=== PATIENT | female | born 1950 | race Caucasian/White ===

== ENCOUNTER 2017-06-04 12:18 | Day surgery (SDC) | payer MEDICARE ==
[2017-06-03 16:49] VITALS: BMI 50.5
[~2017-06-04 12:18] MED LIST: PHENYLEPHRINE-NS 100 MCG/ML 10 ML SYRINGE ONE; PROPOFOL 200 MG/20 ML VIAL ONE; ePHEDrine/0.9% NaCl/PF SYRINGE 50 mg/10 ml ONE
--- NOTE | 2017-06-04 14:02 | OP ---
DATE OF PROCEDURE: 06/04/2017 PROCEDURE: Colonoscopy with snare polypectomy. SURGEON: Jayson Freeman M.D. ANESTHESIA: Medication given per Anesthesiology Department. PREPROCEDURE DIAGNOSIS: Positive Cologuard stool fit - DNA test. POSTOPERATIVE DIAGNOSES: 1. Sigmoid colon polyp, status post cold snare polypectomy. 2. Otherwise normal colon exam. PROCEDURE IN DETAIL: Written consent was obtained prior to procedure. After adequate sedation, a re ctal exam was performed and was normal. Endoscope was advanced to the cecum. The quality of bowel p rep was adequate. The cecum, ascending colon, hepatic flexure, transverse colon, splenic flexure, de scending colon appeared normal. In the sigmoid colon, a 5 mm sessile polyp was noted and was removed with a cold snare with complete resection. The polyp was retrieved. The rectal vault appeared norm al including retroflexion. The patient tolerated procedure well. ASSESSMENT: 1. Sigmoid colon polyp, status post snare polypectomy. 2. Otherwise normal colon exam. PLAN: Await biopsy result.
== END 2017-06-04 14:38 | disposition home or self-care (01) ==
LOC: SDC 12:18
PROVIDERS: ATTEND Internal Medicine Gastroenterology
PROC: 0DBN8ZX Excision of Sigmoid Colon, Via Natural or Artificial Opening Endoscopic, Diagnostic (ICD-10-PCS; principal; 2017-06-04)
DX: R19.5 Other fecal abnormalities (principal); D12.5 Benign neoplasm of sigmoid colon; I10 Essential (primary) hypertension; N32.81 Overactive bladder; M17.10 Unilateral primary osteoarthritis, unspecified knee; J42 Unspecified chronic bronchitis; Z79.899 Other long term (current) drug therapy; Z91.048 Other nonmedicinal substance allergy status
CPT/HCPCS: 88305; J2704

== ENCOUNTER 2017-07-29 09:31 | Outpatient (CLI) | payer MEDICARE | END 2017-07-29 09:32 | disposition home or self-care (01) | LOC: BICMAMMO 09:31 | PROVIDERS: ATTEND Internal Medicine Hematology & Oncology | DX: Z08 Encounter for follow-up examination after completed treatment for malignant neoplasm (principal); Z85.3 Personal history of malignant neoplasm of breast | CPT/HCPCS: 77066; G0279 ==

== ENCOUNTER 2018-08-06 09:26 | Outpatient (CLI) | payer MEDICARE ==
--- NOTE | 2018-08-06 10:27 | MMO ---
Bilateral MAMMO Bilat Screen [facility]. CLINICAL HISTORY: Patient is 68 years old and is seen for screening. The patient has the following family history of breast cancer: sister. The patient has a history of malignant (generic) in the right breast at age 54. The patient has a history of right Lumpectomy at age 54 - malignant. VIEWS: The views performed were: bilateral craniocaudal with tomosynthesis and bilateral mediolateral oblique with tomosynthesis. FILMS COMPARED: The present examination has been compared to prior imaging studies performed at [facility] on 07/29/2017, and at [facility] on 05/09/2014, 05/07/2015 and 07/28/2016. MAMMOGRAM FINDINGS: There are scattered fibroglandular densities. There are no suspicious masses, suspicious calcifications, or new areas of architectural distortion. IMPRESSION: THERE IS NO MAMMOGRAPHIC EVIDENCE OF MALIGNANCY. A ROUTINE FOLLOW-UP MAMMOGRAM IN 1 YEAR IS RECOMMENDED. THE RESULTS OF THIS EXAM WERE SENT TO THE PATIENT. ACR BI-RADS Category 1 - Negative MAMMOGRAPHY NOTE: 1. A negative mammogram report should not delay a biopsy if a dominant of clinically suspicious mass is present. 2. Approximately 10% to 15% of breast cancers are not detected by mammography. 3. Adenosis and dense breasts may obscure an underlying neoplasm.
== END 2018-08-06 09:27 | disposition home or self-care (01) ==
LOC: BICMAMMO 09:26
PROVIDERS: ATTEND Internal Medicine Hematology & Oncology
DX: Z12.31 Encounter for screening mammogram for malignant neoplasm of breast (principal)
CPT/HCPCS: 77063; 77067

== ENCOUNTER 2018-10-28 12:46 | Outpatient (CLI) | payer MEDICARE ==
--- NOTE | 2018-10-28 13:42 | ULT ---
US Venous Doppler Lt Unilat History: Left calf swelling. Pain. Comparison: None. Findings: Real-time grayscale, color, and spectral analysis of the left lower extremity venous system was performed. The common femoral, femoral, proximal portions greater saphenous and deep femoral veins as well as the popliteal posterior tibial veins were interrogated. Normal flow, augmentation, and compression. Incidental note of popliteal cyst.. Impression: No deep venous thrombosis.
== END 2018-10-28 12:47 | disposition home or self-care (01) ==
LOC: RAD 12:46 → ULT 12:47
PROVIDERS: ATTEND Family Medicine
DX: M79.605 Pain in left leg (principal); R60.0 Localized edema

== ENCOUNTER 2018-11-09 11:31 | Inpatient (IN) | payer MEDICARE ==
[2018-11-09 14:18] LABS: Anion Gap 15 mmol/L (10-20); BUN (Urea Nitrogen) 20 mg/dL (9.8-20.1); Calc. Creatinine Clearance 0 mL/min (70-130); Carbon Dioxide 24 mmol/L (23-31); Chloride 104 mmol/L (98-107); Estimated GFR-MDRD 75; Glucose 112 mg/dL (80-115); Potassium 4.7 mmol/L (3.5-5.1); Sodium 138 mmol/L (136-145)
[2018-11-09 14:20] LABS: Hemoglobin 16.7 g/dL (12.0-16.0); Mean Corpuscular HGB CONC 33.9 g/dL (32.0-36.0); Mean Corpuscular Hemoglobin 32.1 pg (27.0-31.0); Mean Corpuscular Volume 94.7 fL (78.0-98.0); Mean Platelet Volume 9.8 fL (7.4-10.4); Platelet Count 156 thou/uL (130-400); RBC Distribution Width 12.9 % (11.5-14.5); Red Blood Cell (RBC) Count 5.21 mill/uL (4.20-5.40); White Blood Cell (WBC) Count 7.3 thou/uL (4.8-10.8)
[2018-11-09 14:22] LABS: Lymphocytes 27 % (21-51); MDiff Complete? YES; Monocytes 9 % (0-10); Neutrophil 54 % (42-75); Platelet Morphology Comment Appears Adequate; RBC Morphology Normal; Reactive Lymphocytes 9 % (0-10)
[2018-11-09] MEDS: Piperacillin/Tazobactam 3.375 GM in Sodium Chloride 0.9% 100 ML IVPB SCH ×2 (14:56→20:45)
[2018-11-09 15:45] VITALS: BMI 52.4
[2018-11-09] MEDS: Vancomycin HCl 1 GM in Premix Bag 1 BAG IVPB SCH (16:28)
--- NOTE | 2018-11-09 17:31 | HP ---
CHIEF COMPLAINT: Left lower extremity swelling, pain, and erythema. HISTORY OF PRESENT ILLNESS: The patient is a 68-year-old female, who failed outpatient treatment of her left lower extremity cellulitis with two rounds of antibiotics, the first one was with Augmentin, the second one was with clindamycin. She underwent a Doppler of the lower extremities recently, which did not show any DVTs. She did not have any fever or chills. Just pain, swelling, and redness. There was no any trauma recently to this left ankle area. Surrogate decision maker is Ms. Jean Watson. Primary care physician, Allie Barry MD PAST MEDICAL HISTORY: 1. Hypertension. 2. Overactive bladder. 3. Arthritis of knee. 4. History of breast cancer. 5. Chronic bronchitis. 6. Hepatitis. PAST SURGICAL HISTORY: 1. x2. 2. Cholecystectomy. 3. Lumpectomy. MEDICATIONS: Please refer to the medications list. SOCIAL HISTORY: She denies any alcohol intake, cigarette smoking, or use any illicit drugs. FAMILY HISTORY: Mother has diabetes, she is still alive. Father is not well known to her. ALLERGIES: NONE. REVIEW OF SYSTEMS: All 14 systems were reviewed and symptoms were negative except for those which are mentioned in HPI. PHYSICAL EXAMINATION: VITAL SIGNS: Pending at this time. HEENT: Her head is atraumatic and normocephalic. Eyes, PERRLA, sclerae are nonicteric. Oral mucosa is moist. NECK: Supple. LUNGS: Clear. HEART: S1 and S2 normal. ABDOMEN: Soft, obese, nontender. EXTREMITIES: Left ankle and above the ankle area is red, swollen, process involves her left foot. Pulses diminished on both tibialis posterior and dorsalis pedis arteries similar bilaterally. NEUROLOGICAL: She is alert and oriented x4. There are no any motor or sensory deficits present. Cranial nerves are intact. LABORATORY DATA: None. IMPRESSION: 1. Left lower extremity cellulitis, status post failed outpatient oral antibiotic therapy x2 weeks. 2. Hypertension. 3. Overactive bladder. 4. History of breast cancer. 5. Chronic bronchitis. 6. Hepatitis. PLAN: Admission for inpatient status. Condition is fair. Activity, bedrest and bathroom privileges. IV Hep-Lock, vancomycin, and Zosyn. IV piggyback. Pain management with Tylenol, and blood cultures x2 before antibiotics are started. We will do DVT prophylaxis with Lovenox. No SCDs since she has some swelling and erythema, and we will reconcile her home medications. Job ID: [id number]
[2018-11-10] MEDS ORDERED: Melatonin 3 MG TAB PO SCH (02:00)
[2018-11-10] MEDS: Piperacillin/Tazobactam 3.375 GM in Sodium Chloride 0.9% 100 ML IVPB SCH ×4 (02:30→20:30)
[2018-11-10] MEDS: Vancomycin HCl 1 GM in Premix Bag 1 BAG IVPB SCH ×2 (04:36→17:05)
[2018-11-10 06:21] LABS: Hemoglobin 14.8 g/dL (12.0-16.0); Lymphocytes 33 % (21-51); MDiff Complete? YES; Mean Corpuscular HGB CONC 32.5 g/dL (32.0-36.0); Mean Corpuscular Hemoglobin 30.7 pg (27.0-31.0); Mean Corpuscular Volume 94.4 fL (78.0-98.0); Monocytes 7 % (0-10); Neutrophil 60 % (42-75); Platelet Count 137 thou/uL (130-400); Platelet Morphology Comment Appears Adequate; RBC Distribution Width 12.9 % (11.5-14.5); RBC Morphology Normal; Red Blood Cell (RBC) Count 4.83 mill/uL (4.20-5.40); White Blood Cell (WBC) Count 6.4 thou/uL (4.8-10.8)
[2018-11-10 06:30] LABS: Anion Gap 12 mmol/L (10-20); BUN (Urea Nitrogen) 16 mg/dL (9.8-20.1); Calc. Creatinine Clearance 173 mL/min (70-130); Calcium 9.1 mg/dL (7.8-10.44); Carbon Dioxide 24 mmol/L (23-31); Chloride 108 mmol/L (98-107); Estimated GFR-MDRD 90; Glucose 104 mg/dL (80-115); Potassium 3.9 mmol/L (3.5-5.1); Sodium 140 mmol/L (136-145)
[2018-11-10] MEDS: Enoxaparin Sodium 40 MG/0.4 ML SYRINGE SC SCH (08:20)
--- NOTE | 2018-11-10 11:46 | PDOC.HOSPP ---
- Subjective Encounter Date: 11/10/18 Encounter Time: 11:44 Subjective: 68 y/o obese female with HTN, breast cancer s/p treatment admitted with worsening left leg pain and swelling that persisted after 2 rounds of antibiotics for presumed cellulitis. No fever. - Objective Vital Signs & Weight: Vital Signs (12 hours) Temp Pulse Resp BP BP Pulse Ox 11/10/18 08:30 93 L 11/10/18 07:34 98.0 F 59 L 20 106/68 93 L 11/10/18 03:29 98.0 F 60 20 91/55 L 93 L 11/10/18 00:00 98.3 F 63 20 92/54 L 93 L Weight Weight 296 lb 3 oz I&O: 11/09/18 11/10/18 11/11/18 06:59 06:59 06:59 Intake Total 780 Balance 780 Result Diagrams: 11/10/18 05:52 11/10/18 05:52 Hospitalist ROS - Medication Medications: Active Medications Generic Name Dose Route Start Last Admin Trade Name Lynn PRN Reason Stop Dose Admin Enoxaparin Sodium 40 mg 11/10/18 09:00 11/10/18 08:20 Lovenox SC Not Given 0900 FRANCINE Piperacillin Sod/Tazobactam 100 mls @ 200 mls/hr 11/09/18 14:00 11/10/18 08: 20 Sod 3.375 gm/ Sodium Chloride IVPB 100 mls 0200,0800,1400,2000 FRANCINE Administration Vancomycin HCl 1 gm/ Device 200 mls @ 200 mls/hr 11/09/18 15:00 11/10/18 04: 36 IVPB 200 mls 0300,1500 FRANCINE Administration - Exam General Appearance: awake alert Eye: anicteric sclera ENT: normocephalic atraumatic, moist mucosa Neck: supple, symmetric Heart: RRR, murmur present Respiratory: no wheezes, no rales, no ronchi, normal chest expansion Respiratory - other findings: some transmitted sounds noted Gastrointestinal: soft, non-tender, non-distended, normal bowel sounds Gastrointestinal - other findings: obese Extremeties - other findings: mild edema of left leg noted Skin - other findings: thickening of skin on both anterior leg with erythroderma and indurations Neurological: CN's grossly intact, no focal deficits Psychiatric: normal affect, A&O x 3 Hosp A/P (1) Cellulitis of left anterior lower leg Code(s): L03.116 - CELLULITIS OF LEFT LOWER LIMB Status: Acute (2) Erythroderma Code(s): L53.9 - ERYTHEMATOUS CONDITION, UNSPECIFIED Status: Acute (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 Get CRP, ESR, PASCALE, CK and CXR. analgesic as needed
[2018-11-10 12:41] LABS: CRP (Inflammatory) 0.7 mg/dL (= or < 0.5)
--- NOTE | 2018-11-10 14:03 | RAD ---
PA AND LATERAL CHEST: Date: 11/10/18 HISTORY: Chronic bronchitis. FINDINGS: Heart size upper limits of normal. Mediastinal structures appear unremarkable. Lungs are clear of any infiltrates. No signs of failure. No interval change since the 08/04/16 study. IMPRESSION: No active intrathoracic disease. POS: TPC
[2018-11-10 18:48] LABS: ANA Symphony (Qualitative) Negative (Negative); ANA Symphony (Quantitative) 0.3 Ratio (< 0.7 Negative); dsDNA IgG Antibody Less than 0.5 IU/mL (<10 Negative)
[2018-11-11] MEDS: Acetaminophen 500 MG TAB PO PRN ×2 (01:52→22:44)
[2018-11-11] MEDS: Melatonin 3 MG TAB PO PRN ×2 (01:52→22:44)
[2018-11-11] MEDS: Vancomycin HCl 1 GM in Premix Bag 1 BAG IVPB SCH ×2 (02:01→18:43)
[2018-11-11] MEDS: Piperacillin/Tazobactam 3.375 GM in Sodium Chloride 0.9% 100 ML IVPB SCH ×4 (02:01→20:24)
[2018-11-11 02:15] LABS: Vancomycin, Trough 13.4 ug/mL
[2018-11-11] MEDS: Enoxaparin Sodium 40 MG/0.4 ML SYRINGE SC SCH (09:50)
--- NOTE | 2018-11-11 17:55 | PDOC.HOSPP ---
- Subjective Encounter Date: 11/11/18 Encounter Time: 17:53 Subjective: 68 y/o obese female with HTN, breast cancer s/p treatment admitted with worsening left leg pain and swelling that persisted after 2 rounds of antibiotics for presumed cellulitis. Reported improvement of swelling but tenderness to touch persisted. Remained afebrile. - Objective Vital Signs & Weight: Vital Signs (12 hours) Temp Pulse Resp BP BP Pulse Ox 11/11/18 16:00 98.2 F 68 18 140/63 94 L 11/11/18 11:35 98.0 F 51 L 16 111/69 95 11/11/18 08:40 91 L 11/11/18 07:27 98.1 F 53 L 18 125/75 91 L Weight Weight 296 lb 3 oz I&O: 11/10/18 11/11/18 11/12/18 06:59 06:59 06:59 Intake Total 780 1150 Balance 780 1150 Result Diagrams: 11/10/18 05:52 11/10/18 05:52 Hospitalist ROS - Medication Medications: Active Medications Generic Name Dose Route Start Last Admin Trade Name Freq PRN Reason Stop Dose Admin Acetaminophen 1,000 mg 11/11/18 01:35 11/11/18 01:52 Tylenol PO 1,000 mg Q6H PRN Administration Moderate to Severe Pain (6-10) Enoxaparin Sodium 40 mg 11/10/18 09:00 11/11/18 09:50 Lovenox SC Not Given 0900 [facility] Piperacillin Sod/Tazobactam 100 mls @ 200 mls/hr 11/09/18 14:00 11/11/18 09: 50 Sod 3.375 gm/ Sodium Chloride IVPB Not Given 0200,0800,1400,2000 FRANCINE Vancomycin HCl 1 gm/ Device 200 mls @ 200 mls/hr 11/09/18 15:00 11/11/18 02: 01 IVPB Not Given 0300,1500 FRANCINE Melatonin 3 mg 11/11/18 01:35 11/11/18 01:52 Melatonin PO 3 mg HS PRN Administration Insomnia - Exam General Appearance: awake alert General - other findings: obese Eye: anicteric sclera ENT: normocephalic atraumatic Neck: supple Heart: RRR Respiratory: no wheezes, no rales, no ronchi, normal chest expansion Gastrointestinal: soft, non-tender, non-distended, normal bowel sounds Gastrointestinal - other findings: obese morbidly Extremeties - other findings: Trace left leg edema. Regressing erythema on left leg. 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 Get scleroderma antibody analgesic as needed Continue other treatments
[2018-11-12] MEDS: Piperacillin/Tazobactam 3.375 GM in Sodium Chloride 0.9% 100 ML IVPB SCH ×2 (01:48→09:04)
[2018-11-12] MEDS: Vancomycin HCl 1 GM in Premix Bag 1 BAG IVPB SCH (02:49)
[2018-11-12 05:54] LABS: #Basophils 0.1 thou/uL (0.0-0.2); #Eosinphils 0.4 thou/uL (0.0-0.7); #Lymphocytes 3.3 thou/uL (1.20-3.40); #Monocytes 0.8 thou/uL (0.11-0.59); %Basophils 0.9 % (0.0-1.0); %Lymphocytes 44.3 % (21.0-51.0); %Monocytes 10.2 % (0.0-10.0); %Neutrophils 39.6 % (42.0-75.0); Hemoglobin 16.6 g/dL (12.0-16.0); Mean Corpuscular HGB CONC 33.6 g/dL (32.0-36.0); Mean Corpuscular Hemoglobin 31.6 pg (27.0-31.0); Mean Platelet Volume 10.3 fL (7.4-10.4); Platelet Count 149 thou/uL (130-400); RBC Distribution Width 12.8 % (11.5-14.5); Red Blood Cell (RBC) Count 5.25 mill/uL (4.20-5.40); White Blood Cell (WBC) Count 7.5 thou/uL (4.8-10.8)
[2018-11-12 06:12] LABS: Anion Gap 13 mmol/L (10-20); BUN (Urea Nitrogen) 11 mg/dL (9.8-20.1); Calc. Creatinine Clearance 171 mL/min (70-130); Calcium 9.8 mg/dL (7.8-10.44); Carbon Dioxide 22 mmol/L (23-31); Chloride 107 mmol/L (98-107); Estimated GFR-MDRD 89; Glucose 99 mg/dL (80-115); Sodium 138 mmol/L (136-145)
[2018-11-12] MEDS: Enoxaparin Sodium 40 MG/0.4 ML SYRINGE SC SCH (08:28)
--- NOTE | 2018-11-12 11:39 | PDOC.EVN ---
Event Note - Event Note Event Note: Discharged home. discharge summary dictated. [id number]
--- NOTE | 2018-11-12 12:13 | DIS ---
DATE OF ADMISSION: 11/09/2018 DATE OF DISCHARGE: 11/12/2018 PRIMARY CARE PHYSICIAN: Allie Barry MD DISCHARGE DIAGNOSES: 1. Left anterior lower leg cellulitis. 2. 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 3. Hypertension. 4. Morbid obesity. 5. Arthritis. HOSPITAL COURSE: A 68-year-old obese female with known history of hypertension and breast cancer, status post treatment, admitted with worsening left leg pain and swelling that persisted after 2 rounds of antibiotics for cellulitis. The patient reportedly had an initial course of Augmentin, followed by clindamycin with persistence of symptoms. Hence, she was sent over by PCP for further evaluation and treatment. The patient was started on broad-spectrum antibiotic therapy with vancomycin and Zosyn with improvement. She, however, continued to have some tenderness, but is regressing. She remained afebrile. IV antibiotics were subsequently and she was started on linezolid for soft tissue infection. Of note, however, the patient was found to have indurations and tenderness on both anterior legs concerning for cutaneous cutis, which could be seen in scleroderma and other autoimmune diseases. Hence, the patient was further evaluated with CRP, ESR, as well as antinuclear antibody, but these were largely unremarkable. Antiscleroderma-70 antibodies was sent out, but the result was pending at the time of discharge. The patient was advised to follow up with PCP with a view to send referral to drive in theater attendant for further evaluation and treatment. PHYSICAL EXAMINATION: VITAL SIGNS: Temperature 97.9, pulse 61, respiratory rate 16, SpO2 of 97% on room air, and blood pressure is 126/77. GENERAL: Obese female, in no obvious distress. Afebrile. Anicteric. Acyanotic. HEENT: Normocephalic, atraumatic. Oral mucosa is moist. CARDIOVASCULAR: Regular rhythm and rate with normal heart sounds 1 and 2. RESPIRATORY: Fair air entry bilaterally with no obvious crackle or rhonchi or use of accessory muscles. GI: Obese, soft, nontender, and nondistended with normal bowel sounds. EXTREMITIES: Regressing erythema, now limited to a circumscribed area of about 10 cm in diameter on the anterior aspect of left leg. No obvious edema was noticed on both legs. Indurations on the anterior legs were also noticed. CENTRIFUGAL OPERATOR: Conscious and alert and oriented x3 with appropriate mental status. Cranial nerves 2 through 12 are grossly intact. The patient is ambulant. DISCHARGE DISPOSITION: Home. DISCHARGE CONDITION: Improved. DISCHARGE MEDICATION: 1. Linezolid 600 mg p.o. b.i.d. 2. Calcium carbonate two tablets p.o. daily. 3. Cholecalciferol 1000 units p.o. daily. 4. Aromasin 25 mg p.o. daily. 5. Lactobacillus one capsule p.o. daily. 6. Multivitamin one capsule p.o. daily. 7. [place]-3 fatty acid two capsules p.o. daily. 8. Oxybutynin 5 mg p.o. daily. 9. Vitamin C 500 mg p.o. daily. FOLLOWUP: The patient is to follow with PCP in 7 days with a view to being referred to a drive in theater attendant for further evaluation for possible autoimmune disease or scleroderma. Discharge took less than 30 minutes. Job ID: [id number]
[2018-11-12 12:14] VITALS: BP 125/57; TEMP 98
[2018-11-12 16:28] LABS: Scleroderma-70 IgG Antibody Less than 0.6 EliAU/mL (<7 Negative)
== END 2018-11-12 12:32 | disposition home or self-care (01) | DRG 603 ==
LOC: T4-B 12:51
PROVIDERS: ADMIT Internal Medicine; ATTEND Internal Medicine
DX: L03.116 Cellulitis of left lower limb (principal); Z68.43 Body mass index [BMI] 50.0-59.9, adult; I10 Essential (primary) hypertension; M17.10 Unilateral primary osteoarthritis, unspecified knee; N32.81 Overactive bladder; J42 Unspecified chronic bronchitis; K75.9 Inflammatory liver disease, unspecified; L53.9 Erythematous condition, unspecified; L94.2 Calcinosis cutis; E66.01 Morbid (severe) obesity due to excess calories; Z85.3 Personal history of malignant neoplasm of breast; Z90.49 Acquired absence of other specified parts of digestive tract
CPT/HCPCS: 36415; 71046; 80048; 80053; 80202; 82550; 85007; 85025; 85027; 85652; 86038; 86140; 86225; 86235; 87040; J1650; J2543; J3370; J3490

== ENCOUNTER 2021-08-06 11:39 | Outpatient (CLI) | payer MEDICARE | END 2021-08-06 11:40 | disposition home or self-care (01) | LOC: BICMAMMO 11:39 | PROVIDERS: ATTEND Internal Medicine Hematology & Oncology | DX: Z12.31 Encounter for screening mammogram for malignant neoplasm of breast (principal); Z80.3 Family history of malignant neoplasm of breast; Z85.3 Personal history of malignant neoplasm of breast | CPT/HCPCS: 77063; 77067 ==

== ENCOUNTER 2022-06-26 11:05 | Outpatient (CLI) | payer MEDICARE | END 2022-06-26 11:06 | disposition home or self-care (01) | LOC: SCSRAD 11:05 | PROVIDERS: ATTEND Family Medicine | DX: J20.9 Acute bronchitis, unspecified (principal) | CPT/HCPCS: 71046 ==

== ENCOUNTER 2022-11-07 11:47 | Outpatient (CLI) | payer MEDICARE | END 2022-11-07 11:48 | disposition home or self-care (01) | LOC: BICMAMMO 11:47 | PROVIDERS: ATTEND Family Medicine | DX: Z12.31 Encounter for screening mammogram for malignant neoplasm of breast (principal); Z80.3 Family history of malignant neoplasm of breast; Z85.3 Personal history of malignant neoplasm of breast; Z98.890 Other specified postprocedural states | CPT/HCPCS: 77063; 77067 ==